=== PATIENT | male | born 1960 | race Caucasian/White ===

== ENCOUNTER 2017-08-26 19:26 | Emergency (ER) | payer OTHER ==
[~2017-08-26] VITALS: Ht 195.6 cm; Wt 96.6 kg
[2017-08-26 19:27] VITALS: BP 142/87
[2017-08-26] MEDS ORDERED: LIDOCAINE 1%, 10ML ONE (19:54)
[2017-08-26] MEDS ORDERED: BACITRACIN ZINC OINT 500U/GM, 0.9 GM ONE (19:54)
[2017-08-26] MEDS ORDERED: LIDOCAINE 1%, 20ML INFIL ONE (20:00)
== END 2017-08-26 21:16 | disposition home or self-care (01) ==
LOC: ED 21:05
DX: S61.012A Laceration without foreign body of left thumb without damage to nail, initial encounter (principal); W26.0XXA Contact with knife, initial encounter; Y93.G1 Activity, food preparation and clean up; Y99.8 Other external cause status; Y92.009 Unspecified place in unspecified non-institutional (private) residence as the place of occurrence of the external cause
CPT/HCPCS: 12041